=== PATIENT | female | born 1930 | race Caucasian/White ===

== ENCOUNTER → 2017-12-27 14:49 | Outpatient (CLI) | payer OTHER ==
[~2017-12-27 14:49] MED LIST: ALTACE10 MG PO; ARICEPT10 MG PO; AVALIDE 300-12.1 TA1 PO; AZITHROMYCIN250 MG PO; CARTIA XT120 MG PO; CARVEDILOL3.125 MG PO; COUMADIN4 MG PO; COZAAR25 MG PO; DECADRON P4 MG/ML-30 IH; DITROPAN X10 MG/BOTT PO; DOLOGEN CAPLET1 TAB PO; FEXOFENADINE H180 MG PO; LASIX40 MG PO; LIMBREL 250 MG250 MG PO; MICRO-K10 MEQ PO; OMNIPRED10 ML OP; ROCEPHIN1 G/VIAL IJ; SIMVASTATIN10 MG PO; SOLU-CORTE100 MG/VIA IJ; TOPROL XL100 MG PO; TRAMADOL HCL50 MG; ZYLOPRIM100 MG; [UNRECOGNIZED DRUG - OTHER] PO
== END | disposition home or self-care (01) ==
LOC: LAB 14:49
DX: D68.8 Other specified coagulation defects (principal); E11.65 Type 2 diabetes mellitus with hyperglycemia; E78.2 Mixed hyperlipidemia; E03.8 Other specified hypothyroidism; N39.0 Urinary tract infection, site not specified; Z12.11 Encounter for screening for malignant neoplasm of colon

== ENCOUNTER 2018-01-09 18:06 | Inpatient (IN) | payer OTHER ==
[~2018-01-09] VITALS: Ht 147.3 cm; Wt 62.6 kg
[2018-01-09] MEDS ORDERED: ATACAND32 MG (20:37)
[2018-01-09] MEDS ORDERED: DITROPAN XL15 MG (20:38)
[2018-01-09] MEDS ORDERED: POTASSIUM600 MG (20:39)
[2018-01-09] MEDS ORDERED: ALENDRONATE SOD70 MG (20:40)
[2018-01-09] MEDS ORDERED: RANITIDINE HCL150 M1 (20:40)
[2018-01-25] MEDS ORDERED: XOPENEX0.63 MG/3 IH (15:16)
[2018-01-25] MEDS ORDERED: DILTIAZEM HCL30 MG PO (15:22)
[2018-01-25] MEDS ORDERED: ISORDIL10 MG PO (15:22)
[2018-01-25] MEDS ORDERED: DITROPAN XL15 MG PO (15:25)
[2018-01-25] MEDS ORDERED: SIMVASTATIN20 MG PO (15:26)
[2018-01-25] MEDS ORDERED: CANDESARTAN CILE8 MG PO (15:27)
[2018-01-25] MEDS ORDERED: GABAPENTIN100 MG PO (15:29)
[2018-01-25] MEDS ORDERED: COUMADIN2 MG PO (15:31)
[2018-01-25] MEDS ORDERED: TOPROL XL50 M1 PO (15:34)
== END 2018-01-25 16:31 | disposition home or self-care (01) | DRG 291 ==
LOC: ER 18:06 → ICU-2 01-10 13:28 → MEDJ 01-14 20:20 → MEDI 01-14 20:20 → MEDJ 01-14 20:20
PROC: B246ZZZ Ultrasonography of Right and Left Heart (ICD-10-PCS; 2018-01-10)
PROC: 3E0F7GC Introduction of Other Therapeutic Substance into Respiratory Tract, Via Natural or Artificial Opening (ICD-10-PCS; principal; 2018-01-11)
PROC: 4A033R1 Measurement of Arterial Saturation, Peripheral, Percutaneous Approach (ICD-10-PCS; 2018-01-12)
PROC: 4A12X4Z Monitoring of Cardiac Electrical Activity, External Approach (ICD-10-PCS; 2018-01-14)
PROC: 02HV33Z Insertion of Infusion Device into Superior Vena Cava, Percutaneous Approach (ICD-10-PCS; 2018-01-19)
PROC: 30233N1 Transfusion of Nonautologous Red Blood Cells into Peripheral Vein, Percutaneous Approach (ICD-10-PCS; 2018-01-19)
PROC: 30233K1 Transfusion of Nonautologous Frozen Plasma into Peripheral Vein, Percutaneous Approach (ICD-10-PCS; 2018-01-19)
PROC: 0DJ08ZZ Inspection of Upper Intestinal Tract, Via Natural or Artificial Opening Endoscopic (ICD-10-PCS; 2018-01-20)
DX: I11.0 Hypertensive heart disease with heart failure (principal); K26.4 Chronic or unspecified duodenal ulcer with hemorrhage; J90 Pleural effusion, not elsewhere classified; D62 Acute posthemorrhagic anemia; D68.32 Hemorrhagic disorder due to extrinsic circulating anticoagulants; K92.1 Melena; I48.0 Paroxysmal atrial fibrillation; I50.23 Acute on chronic systolic (congestive) heart failure; I27.29 Other secondary pulmonary hypertension; I34.0 Nonrheumatic mitral (valve) insufficiency; E78.4 Other hyperlipidemia; N39.498 Other specified urinary incontinence; I36.1 Nonrheumatic tricuspid (valve) insufficiency; T45.515A Adverse effect of anticoagulants, initial encounter; K29.60 Other gastritis without bleeding; Z78.1 Physical restraint status